=== PATIENT | female | born 1985 | race African-American/Black ===

== ENCOUNTER 2023-06-20 06:24 | Emergency (ER) | payer OTHER ==
[~2023-06-20] VITALS: Ht 152.4 cm; Wt 72.0 kg
[2023-06-20 06:36] VITALS: BP 141/83; PULSE 110; RESP 16; TEMP 98.5; O2SAT 100
== END 2023-06-20 09:12 | disposition left against medical advice (07) ==
LOC: ER 06:24
DX: R42 Dizziness and giddiness (principal); Z53.21 Procedure and treatment not carried out due to patient leaving prior to being seen by health care provider